=== PATIENT | female | born 1950 | race Caucasian/White ===

== ENCOUNTER 2016-07-08 23:33 | Emergency (ER) | payer OTHER ==
--- NOTE | 2016-07-09 00:12 | PDOC ---
History of Present Illness - General Chief Complaint: Pain, Acute Stated Complaint: NAUSEA/ABD PAIN Time Seen by Provider: 07/08/16 23:51 History Source: Patient Exam Limitations: No Limitations - History of Present Illness Initial Comments: 07/09/16 00:27 This is a 65-year-old female who comes in with her for evaluation of right upper quadrant abdominal pain. Patient is had 2 episodes of pain over the last 24-48 hours. Both were associated with eating fatty food. Patient said pain is now completely resolved and she does not want further evaluation and would like to go home. Patient otherwise denies any fevers or chills. She did have some nausea and dry heaves associated with the pain. Patient has not had a workup for the pain in the past and denies any family history of gallstones or personal history of gallstones. PAST MEDICAL HISTORY: no significant history PAST SURGICAL HISTORY: no significant history FAMILY HISTORY: no pertinant history SOCIAL HISTORY: Pt lives with family and is employed. MEDICATIONS: reviewed ALLERGIES: As per nursing notes Review of Systems General: No fevers or chills, no weakness, no weight loss HEENT: No change in vision. No sore throat,. No ear pain CardioVascular: No chest pain or shortness of breath Respiratory:No cough, or wheezing. Gastrointestinal: + nausea, vomitting, diarrhea or constipation, No rectal bleeding, plus abdominal pain Genitourinary: No dysuria, hematuria, or frequency Musculoskeletal: No joint or muscle pain or swelling Neurologic: No headache, vertigo, dizziness or loss of consciousness Psychiatric: nor depression Skin: No rashes or easy bruising Endocrine: no increased thirst or abnormal weight change Allergic: no skin or latex allergy All other systems reviewed and normal Patient deferred exam as pain had resolved and she didn't not want further workup. Assessment and plan: Discussed with patient that the most likely cause of her pain is gallstones. Gave patient option of a workup tonight however she said it is the holiday for her and she would prefer to wait to have a workup in tell next week where she will see her primary care doctor and get a workup. Discussed with patient the importance of maintaining a strict fat-free diet and told her what she needs to return for as far as pain, fever, chills or worsening symptoms. Patient is reliable, has a primary care doctor to follow- up with an was also given instructions to Past History - Past Medical History Allergies/Adverse Reactions: Allergies Allergy/AdvReac Type Severity Reaction Status Date / Time No Known Drug Allergies Allergy Verified 05/25/13 18:23 FRAGRANCES Allergy Uncoded 05/25/13 18:23 BLEACH AdvReac Uncoded 05/25/13 18:23 Home Medications: Ambulatory Orders Aspirin [Aspir 81] 162 mg PO BID 08/04/11 Lactobacillus Rhamnosus GG [Probiotic] 1 each PO DAILY 09/05/12 Levothyroxine [Synthroid] 100 mcg PO DAILY 09/05/12 Psyllium Husk [Metamucil] 0.52 gm PO DAILY 09/05/12 Anemia: No Asthma: No Cancer: Yes (RIGHT BREAST CA 1998,LUMPECTOMY AND AXILLARY NODE DISSECTION) Cardiac Disorders: No CVA: No COPD: No CHF: No Dementia: No Diabetes: No GI Disorders: No Disorders: No HTN: No Hypercholesterolemia: No Liver Disease: No Seizures: No Thyroid Disease: Yes (INACTIVE THYROID DUE TO CEHEMO) - Surgical History Abdominal Surgery: No Appendectomy: No Cardiac Surgery: No Cholecystectomy: No Lung Surgery: Yes (L UPPER LOBECTOMY THOUGHT SHE HAD CA-'BENIGN" AND LYMPMH NODES REMOVED 2008) Neurologic Surgery: No Orthopedic Surgery: Yes (LEFT KNEE ARTHROSCOPIC SURGERY) - Psycho/Social/Smoking Cessation Hx Anxiety: No Suicidal Ideation: No Smoking History: Never smoked Have you smoked in the past 12 months: No Number of Cigarettes Smoked Daily: 0 If you are a former smoker, when did you quit?: 1987 Hx Alcohol Use: No Drug/Substance Use Hx: No Substance Use Type: Alcohol Hx Substance Use Treatment: No *DC/Admit/Observation/Transfer Diagnosis at time of Disposition: Resolved abdominal pain - Discharge Dispostion Disposition: HOME Condition at time of disposition: Stable - Referrals Referrals: Rio Rosen [Primary Care Provider] - - Patient Instructions Additional Instructions: U pain was most likely secondary to a gallstone. Since it has now resolved is important that you adhere to a strict nonfat diet as that will cause the pain to come back. Follow-up with your primary care doctor on Monday for a ultrasound of your gallbladder to see if you have gallstones and to discuss treatment options. Return to the emergency department immediately with ANY new, persistent or worsening symptoms. Continue any medications as previously prescribed by your physician. . Please make sure your doctor reviews the results of your emergency evaluation. Thank you for coming to the Emergency Department today for your care. It was a pleasure to see you today. Please note that your evaluation is INCOMPLETE until you follow-up with your doctor.
[2016-07-09 03:04] VITALS: BP 154/96; PULSE 64; TEMP 97.5; BMI 26.3
== END 2016-07-09 00:20 | disposition home or self-care (01) ==
LOC: FER 23:33
DX: R10.11 Right upper quadrant pain (principal); Z85.3 Personal history of malignant neoplasm of breast; E07.9 Disorder of thyroid, unspecified
CPT/HCPCS: 99282-25